=== PATIENT | female | born 1955 | race Two or more races ===

== ENCOUNTER → 2025-02-10 | Outpatient (CLI) | payer MEDICAID, SELFPAY ==
[2025-02-07 11:34] LABS: Basophils % (Auto) 0 % (0-2.5); Eosinophils # (Auto) 0.1 Thou/mm3 (0.0-0.5); Eosinophils % (Auto) 1 % (0-10); Hematocrit 43.8 % (36.0-46.0); Hemoglobin 15.2 g/dL (12.0-16.0); Immature Granulocytes % (Auto) 0 % (0-0); Immature Granulocytes Auto 0.03 Thou/mm3 (0.00-0.00); Lymphocytes # (Auto) 2.1 Thou/mm3 (1.0-4.8); Lymphocytes % (Auto) 23 % (10-50); Mean Corpuscular HGB Conc 34.7 g/dl (31.0-37.0); Mean Corpuscular Hemoglobin 30.4 pg (25.0-35.0); Mean Corpuscular Volume 88 fL (80-100); Monocytes # (Auto) 0.8 Thou/mm3 (0.0-0.8); Monocytes % (Auto) 8 % (0-12); Neutrophils # (Auto) 6.4 Thou/mm3 (1.8-7.7); Neutrophils % (Auto) 67 % (37-80); Nucleated Red Blood Cell % 0 /100 WBC (0); Platelet Count 162 Thou/mm3 (140-440); RDW Standard Deviation 44.7 fL (36.4-46.3); White Blood Count 9.4 Thou/mm3 (3.6-11.0)
[2025-02-07 11:52] LABS: Partial Thromboplastin Time 26.5 Seconds (22.0-36.0); Prothrombin Time 11.4 Seconds (9.0-12.2)
--- NOTE | 2025-02-10 08:17 | XR_ITS ---
Examination: Breast ultrasound, unilateral, left complete Date and time of exam: February 10, 2025 0914 hours INDICATIONS: Palpable lump outer left breast note is beginning 8 months ago Technique: Real-time melgar scale ultrasonographic imaging performed left breast including all 4 quadrants as well as nipple retroareolar and axillary region. Findings: 1:00 oval mass irregular indistinct margins 4.2 x 2.4 x 3.1 cm IMPRESSION: BI-RADS Category 4: Suspicious for malignancy Suspicious mass 1:00 position left breast, biopsy is needed to exclude breast carcinoma, this mass is amenable to ultrasound-guided breast biopsy for diagnosis
--- NOTE | 2025-02-10 08:30 | XR_ITS ---
Examinations: Ultrasound-guided percutaneous breast biopsy, left breast 1:00 nodule Left breast sonography limited INDICATIONS: BI-RADS 4 suspicious mass 1:00 position left breast on left breast sonogram today, palpable left breast nodule noted several months ago Exam date and time: February 10, 2025 0935 hours. Informed consent provided. Technique: A timeout was completed verifying correct patient, procedure, site, positioning, and special equipment if applicable Informed consent provided. The patient was placed in a supine position for the breast biopsy. Sonographic images of the breast were performed for localization of the suspicious nodule The patient's breast was prepped and draped in sterile fashion. Maximum sterile barrier technique, hand hygiene, ultrasound sterile technique 1% lidocaine was used to anesthetize the skin and breast adjacent to the suspicious nodule. Utilizing ultrasonographic guidance, 8 core biopsies were obtained of the suspicious nodule utilizing an 18-gauge BioPince needle. The specimens appears satisfactory. US guided breast biopsy marker placement. Estimated blood loss 3 cc. The patient tolerated the procedure well and there were no complications. Impression: Successful ultrasound-guided percutaneous breast biopsy, left breast 1:00 nodule. Ultrasound guided breast biopsy marker placement.
== END | disposition home or self-care (01) ==
LOC: SDIM 08:04 → SIRX 09:19
PROVIDERS: Radiology Diagnostic Radiology; PCP Physician Assistant Medical; Referring Provider Physician Assistant Medical; Visit Provider Physician Assistant Medical
DX: C50.412 Malignant neoplasm of upper-outer quadrant of left female breast (principal); Z17.1 Estrogen receptor negative status [ER-]; Z17.22 Progesterone receptor negative status; Z01.812 Encounter for preprocedural laboratory examination
CPT/HCPCS: 19083; 36415; 76641; 85025; 85610; 85730; A4648

== ENCOUNTER → 2025-03-21 | Outpatient (CLI) | payer MEDICAID, SELFPAY ==
--- NOTE | 2025-03-21 14:00 | ECHO_ITS ---
Transthoracic Echo Report Ht (in): 62 Wt (lb): 180 Exam Location: Echo Lab Status: Preadmit Electrical Software Engineer: GINA Elias^^^^ Indications: Procedure Performed: BP: / HR: Technical Quality: Fair MEASUREMENTS (Male / Female) Normal Values 2D ECHO LV Diastolic Diameter PLAX 3.3 cm 4.2 - 5.9 / 3.9 - 5.3 cm LV Systolic Diameter PLAX 2.1 cm IVS Diastolic Thickness 1.1 cm 0.6 - 1.0 / 0.6 - 0.9 cm LVPW Diastolic Thickness 0.9 cm 0.6 - 1.0 / 0.6 - 0.9 cm LV Relative Wall Thickness 0.6 LVOT Diameter 1.8 cm Aortic Root Diameter 3.0 cm LA Systolic Diameter LX 3.3 cm 3.0 - 4.0 / 2.7 - 3.8 cm LA Volume Index 25.0 cm?/m? 16 - 28 cm?/m? DOPPLER AV Peak Velocity 129.5 cm/s AV Peak Gradient 6.7 mmHg AV Mean Gradient 4.0 mmHg AV Velocity Time Integral 32.1 cm LVOT Peak Velocity 129.0 cm/s LVOT Peak Gradient 6.7 mmHg LVOT Velocity Time Integral 32.2 cm AV Area Cont Eq vti 2.6 cm? AV Area Cont Eq pk 2.5 cm? MV Peak Velocity 106.0 cm/s MV Peak Gradient 4.5 mmHg MV Mean Velocity 68.1 cm/s MV Mean Gradient 2.0 mmHg MV Area PHT 3.8 cm? Mitral E Point Velocity 74.6 cm/s Mitral A Point Velocity 93.5 cm/s Mitral E to A Ratio 0.8 TR Peak Velocity 172.0 cm/s TR Peak Gradient 11.8 mmHg PV Peak Velocity 97.6 cm/s PV Peak Gradient 3.8 mmHg RVOT Peak Velocity 65.0 cm/s FINDINGS Left Ventricle Normal left ventricular size, wall thickness, systolic function with no obvious regional wall motion abnormalities. There is grade I diastolic dysfunction of the left ventricle (impaired relaxation pattern). The left ventricular ejection fraction is normal, estimated at 60-65%. Right Ventricle The right ventricle is normal in size and systolic function. The estimated right ventricular systolic pressure, 15 mmHg. Left Atrium The left atrium is normal by two-dimensional, color flow and Doppler imaging with no structural abnormalities, no thrombus formation present. Right Atrium The right atrium is normal by two-dimensional imaging, color flow and Doppler imaging with no structural abnormalities, no thrombus formation present. Atrial Septum The interatrial septum appears normal with no evidence of a shunt. Aorta The aortic root, ascending aorta, aortic arch and descending thoracic aorta are normal to two-dimensional, color flow and Doppler interrogation. Mitral Valve Trace to mild mitral regurgitation. Mild mitral annular calcification. Aortic Valve Aortic valve sclerosis. Tricuspid Valve There is mild tricuspid valve regurgitation. Pulmonic Valve Trivial pulmonic valve regurgitation. Vessels The pulmonary artery appears normal. The inferior vena cava pulmonary and hepatic veins appear normal. Pericardium The pericardium is normal by two-dimensional imaging. There is no significant pericardial effusion. CONCLUSIONS indication: cancer center LV appears normal with EF 60-65%. Diastolic Dysfucntion I. RV appears normal with RVSP 15 mmHg. Mild MR & MAC Mild TR AOV sclerosis Bella Locke (Electronically Signed) Final Date: 21 March 2025 15:32
== END | disposition home or self-care (01) ==
LOC: SDIM 13:36
PROVIDERS: Referring Provider Internal Medicine Hematology & Oncology; Visit Provider Internal Medicine Hematology & Oncology
DX: I08.1 Rheumatic disorders of both mitral and tricuspid valves (principal); C50.412 Malignant neoplasm of upper-outer quadrant of left female breast
CPT/HCPCS: 93306

== ENCOUNTER → 2025-03-28 | Outpatient (CLI) | payer MEDICAID, SELFPAY ==
--- NOTE | 2025-03-28 14:30 | XR_ITS ---
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 Anterior, posterior whole body images are obtained. Images have been obtained including the lower extremities. Findings: Prominent thoracolumbar dextroscoliosis Increased isotope accumulation lower right anterior rib probably the ninth rib Pronounced asymmetric uptake about the knees Increased uptake about the right ankle IMPRESSION: Positive bone scan but nonspecific Recommend right rib series and bilateral knee films follow-up
== END | disposition home or self-care (01) ==
PROVIDERS: PCP Physician Assistant Medical; Referring Provider Internal Medicine Hematology & Oncology; Visit Provider Internal Medicine Hematology & Oncology
DX: R93.7 Abnormal findings on diagnostic imaging of other parts of musculoskeletal system (principal); C50.412 Malignant neoplasm of upper-outer quadrant of left female breast
CPT/HCPCS: 78306; A9503

== ENCOUNTER → 2025-04-02 | Outpatient (CLI) | payer MEDICAID, SELFPAY ==
--- NOTE | 2025-04-02 13:30 | XR_ITS ---
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 Intravenous administration 60 cc [id number] 2-D sagittal and coronal reconstructions. Low dose protocols were performed. One or more of the following dose reduction techniques were used; automated exposure control, adjustment of the mA and/or KV according to patient size, use of iterative reconstruction technique. Findings: High right paratracheal soft tissue mass 32 mm which may represent a thyroid nodule No thoracic aortic aneurysm dilatation No pulmonary artery filling defects Left lateral breast markers No paratracheal tracheobronchial or bronchopulmonary adenopathy 4 mm pulmonary nodule right midlung image 132 No pneumonia or pulmonary edema, no pleural disease No pathologic axillary lymphadenopathy No focal liver or splenic lesions No gallstones No pancreatic mass No hydronephrosis 4 mm left lateral periaortic lymph node image 172 No bowel obstruction No uterine or adnexal mass Contracted urinary bladder No findings diagnostic for osseous metastatic disease IMPRESSION: Recommend thyroid sonography to confirm 32 mm right thyroid nodule 4 mm pulmonary nodule right midlung, with this study as baseline recommend 6 month follow-up CT chest without contrast 4 mm left lateral periaortic lymph node image 172, consider PET CT scan follow-up
== END | disposition home or self-care (01) ==
PROVIDERS: Referring Provider Internal Medicine Hematology & Oncology; Visit Provider Internal Medicine Hematology & Oncology
DX: R91.1 Solitary pulmonary nodule (principal); E07.89 Other specified disorders of thyroid; C50.412 Malignant neoplasm of upper-outer quadrant of left female breast
CPT/HCPCS: 71260; 74177; A4649; Q9967

== ENCOUNTER → 2025-04-18 | Outpatient (CLI) | payer MEDICAID, SELFPAY ==
--- NOTE | 2025-04-18 15:31 | XR_ITS ---
Examination: Ribs, right, with PA chest, 5 views Technique: Chest PA, RIBS AP, RPO, LPO, AP coned lower ribs 5 views Exam date and time: April 18, 2025 1542 hours , Positive nuclear medicine bone scan March 28, 2025 right lower anterior rib INDICATIONS: Right rib pain this week, clinical diagnosis metastasis Findings: Normal heart size Lungs are clear Left subclavian Port-A-Cath tip SVC satisfactory position Moderate osteopenia No rib cortical bone destruction IMPRESSION:. No definite rib cortical bone destruction
--- NOTE | 2025-04-18 15:33 | XR_ITS ---
Examination: Knee bilateral, 6 views Technique: Knee AP, lateral, oblique, each knee, 6 views Date and time of exam: April 18, 2025 1543 hours INDICATIONS: Bilateral knee pain this month, diagnosis metastatic bone cancer, increased uptake about the knees are negative for medicine bone scan March 28, 2025, diagnosis malignant neoplasm upper outer quadrant left female breast FINDINGS: Bilateral advanced tricompartment knee osteoarthritis No areas of osseous metastatic disease detected Ossified joint bodies left knee IMPRESSION: Bilateral advanced tricompartment osteoarthritis, likely accounting for increased uptake about the knees on the nuclear medicine bone scan
== END | disposition home or self-care (01) ==
PROVIDERS: Referring Provider Internal Medicine Hematology & Oncology; Visit Provider Internal Medicine Hematology & Oncology
DX: R07.81 Pleurodynia (principal); M17.0 Bilateral primary osteoarthritis of knee; C50.412 Malignant neoplasm of upper-outer quadrant of left female breast
CPT/HCPCS: 71101; 73562

== ENCOUNTER → 2025-04-18 | Outpatient (CLI) | payer MEDICAID, SELFPAY ==
--- NOTE | 2025-04-18 13:30 | XR_ITS ---
Examination: MRI of brain without intravenous contrast. MRI brain with intravenous contrast. 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 Siemens high-resolution 1.52 Tanya short bore scanner utilized. Sagittal sections, T1 weighted images, TR 500, TE 14, are performed. Axial sections proton-density and T2-weighted images have been obtained. Inversion recovery axial images, TR 9260, TE 111, TR 2500. Diffusion weighted images, axial sections, TR 4800, TE 128, B value 1000. Axial sections, ADC map, TR 4800, TE 128. Axial and coronal images were also obtained post 15 cc gadolinium administered intravenously. Findings:: Enlargement of the sella turcica is not present. The optic chiasm and infundibular stalk are not remarkable. There is no localized enlargement of the medulla or johana. Fourth ventricle and cerebellar tonsils appear normal in position. No subacute area of hemorrhage density is seen. Fourth ventricle is midline. Mass in the cerebellopontine angle region is not evident. 7th and 8th nerve complexes exhibit symmetry Globes are symmetrical Orbital musculature including medial lateral rectus muscles do not exhibit abnormality Increased white matter signal is mild Effacement of the cortical sulcal markings is not identified. Mass effect upon the ventricular system is not identified. Diffusion-weighted images demonstrate no focus of restricted diffusion Contrast images demonstrate no abnormal enhancing cerebellar or cerebral lesions Impression: Negative for acute hemorrhage mass effect or midline shift No acute infarct No abnormal enhancing cerebellar or cerebral lesions
== END | disposition home or self-care (01) ==
PROVIDERS: Referring Provider Internal Medicine Hematology & Oncology; Visit Provider Internal Medicine Hematology & Oncology
DX: C50.412 Malignant neoplasm of upper-outer quadrant of left female breast (principal)
CPT/HCPCS: 70553; A9579

== ENCOUNTER → 2025-04-19 | Outpatient (CLI) | payer MEDICAID, SELFPAY ==
--- NOTE | 2025-04-19 09:00 | XR_ITS ---
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
== END | disposition home or self-care (01) ==
LOC: SMRI 08:06
PROVIDERS: Referring Provider Internal Medicine Hematology & Oncology; Visit Provider Internal Medicine Hematology & Oncology
DX: R92.8 Other abnormal and inconclusive findings on diagnostic imaging of breast (principal); C50.412 Malignant neoplasm of upper-outer quadrant of left female breast
CPT/HCPCS: 77049; A9579; C8908

== ENCOUNTER → 2025-05-01 | Outpatient (CLI) | payer MEDICAID, SELFPAY ==
--- NOTE | 2025-05-01 15:30 | XR_ITS ---
Examination: Thyroid sonography complete TECHNIQUE: Ríos scale sonographic images thyroid lobes Date and time: May 01, 2025, 1548 hours INDICATIONS: CT examination April 02, 2025 high right peritracheal soft tissue mass 32 mm, thyroid nodule FINDINGS: Right thyroid 4.4 cm Upper pole nodule 11 x 13 x 11 mm Large mid and lower pole right thyroid nodule with vascularity 2.6 x 2.9 x 2.4 cm Left thyroid 3.4 cm No thyroid nodules IMPRESSION: Right thyroid nodules as above. Consider ultrasound-guided fine-needle aspiration of the large vascular mid to lower pole right thyroid nodule, 2.6 x 2.9 x 2.4 cm
== END | disposition home or self-care (01) ==
LOC: CDIM 15:30
PROVIDERS: Referring Provider Internal Medicine Hematology & Oncology; Visit Provider Internal Medicine Hematology & Oncology
DX: E04.2 Nontoxic multinodular goiter (principal)
CPT/HCPCS: 76536

== ENCOUNTER → 2025-07-10 | Outpatient (CLI) | payer MEDICAID, SELFPAY ==
[2025-07-09 15:33] LABS: Basophils # (Auto) 0.1 Thou/mm3 (0.0-0.2); Basophils % (Auto) 1 % (0-2.5); Eosinophils # (Auto) 0.0 Thou/mm3 (0.0-0.5); Eosinophils % (Auto) 0 % (0-10); Hematocrit 32.2 % (36.0-46.0); Hemoglobin 10.8 g/dL (12.0-16.0); Immature Granulocytes Auto 0.30 Thou/mm3 (0.00-0.00); Lymphocytes # (Auto) 1.3 Thou/mm3 (1.0-4.8); Lymphocytes % (Auto) 14 % (10-50); Mean Corpuscular HGB Conc 33.5 g/dl (31.0-37.0); Mean Corpuscular Hemoglobin 32.8 pg (25.0-35.0); Mean Corpuscular Volume 98 fL (80-100); Monocytes # (Auto) 1.3 Thou/mm3 (0.0-0.8); Monocytes % (Auto) 14 % (0-12); Neutrophils # (Auto) 6.2 Thou/mm3 (1.8-7.7); Neutrophils % (Auto) 68 % (37-80); Nucleated Red Blood Cell # 0.00 Thou/mm3 (0.00-0.00); Nucleated Red Blood Cell % 0 /100 WBC (0); Platelet Count 155 Thou/mm3 (140-440); RDW Standard Deviation 57.0 fL (36.4-46.3); Red Blood Count 3.29 Miln/mm3 (4.00-5.20); White Blood Count 9.1 Thou/mm3 (3.6-11.0)
[2025-07-09 15:43] LABS: INR 1.0 (0.9-1.3); Partial Thromboplastin Time 26.2 Seconds (22.0-36.0); Prothrombin Time 11.4 Seconds (9.0-12.2)
--- NOTE | 2025-07-10 08:30 | XR_ITS ---
Examination: Ultrasound-guided fine needle percutaneous aspiration thyroid nodule, right thyroid lobe. Thyroid sonography, limited Exam date and time: July 10, 2025 0926 hours INDICATIONS: Thyroid sonogram May 01, 2025 vascular right thyroid nodule 2.6 x 2.9 x 2.4 cm. Technique: A timeout was completed verifying correct patient, procedure, site, positioning and special equipment if applicable. The patient was placed in supine position for the thyroid fine needle percutaneous aspiration The patient's right neck was prepped and draped in sterile fashion. Maximum barrier sterile technique, hand hygiene, ultrasound sterile technique. 1% lidocaine was used to anesthetize the skin and subcutaneous tissues to the patient's right thyroid nodule. Multiple fine needle aspirations were performed and multiple thyroid specimens placed in preservative according to the irm protocol. Specimens appears satisfactory. The attending radiologist was present for the entire procedure. Estimated blood loss 3 cc. The patient tolerated the procedure well and there were no complications. Impression: Successful ultrasound-guided fine-needle percutaneous aspiration thyroid nodule, right thyroid nodule.
== END | disposition home or self-care (01) ==
LOC: SIRX 08:19
PROVIDERS: Radiology Diagnostic Radiology; PCP Family Medicine; Referring Provider Internal Medicine Hematology & Oncology; Visit Provider Internal Medicine Hematology & Oncology
DX: E04.1 Nontoxic single thyroid nodule (principal); Z01.812 Encounter for preprocedural laboratory examination
CPT/HCPCS: 10005; 36415; 85025; 85610; 85730